=== PATIENT | female | born 1945 | race Caucasian/White ===

== ENCOUNTER → 2016-08-09 | Outpatient (CLI) | payer MEDICARE ==
[2015-05-11 14:00] VITALS: BP 115/52
[~2016-08-09] MED LIST: ASCO100T4 PO; ASPI81TA2 PO; ATOR40TA59 PO; CALC600T4 PO; CHOL2000 PO; DILT120T4 PO; DILT240C66 PO; DIPH25CA58 PO; FEXO1TAB64 PO; HYDR12.53 PO; HYDR25TA9 PO; IBUP200C PO; IBUP200T77 PO; IOHEXOL 240 MG/ML 50ML VIAL. PO ONE; IOHEXOL 300 MG/ML 100ML VIAL. IV ONE; LISI1TAB3 PO; LISI1TAB5 PO; OMEG300C PO; PANT40TA5 PO; POTA10TA5 PO; RANI150T2 PO; TRIA15CR TP; TRIA1CAP3 PO; ZINC50TA2 PO; [UNRECOGNIZED DRUG - OTHER]
--- NOTE | 2016-08-09 11:14 | KCIC ---
PROCEDURE CT abdomen and pelvis with contrast. HISTORY Left lower quadrant pain, history of diverticulitis TECHNIQUE After administration of intravenous and oral contrast, CT imaging was performed of the abdomen and pelvis, multiplanar reconstruction images submitted. Exposure: One or more of the following individualized dose reduction techniques were utilized for this exam: 1. Automated exposure control. 2. Adjustment of the mA and/or kV according to patient size. 3. Use of iterative reconstruction technique. Contrast: 100 cc Omnipaque 300 COMPARISON 09/15/2013 FINDINGS There is some coronary calcification, also mitral annular calcification. There is no new focal abnormality of the liver, spleen, pancreas. There is again small accessory spleen. Both kidneys enhance, no hydronephrosis. There is again mild left hydroureter, no ureteral calculus identified. There is a hypodense lesion of the mid left kidney 1.5 cm in size which is larger than previously, density measurements suggestive of a cyst 15 Hounsfield units. Tiny hypodense lesion of the inferior left kidney is otherwise difficult to accurately characterize 0.3 centimeters in size. Gallbladder is present without obvious intraluminal abnormality by CT. There is no adrenal nodularity. There is scattered atherosclerotic calcification of the abdominal aorta and iliac arteries. Normal appendix is visualized. There is retained stool throughout the colon. Bowel is not significantly dilated. There is no free air or free fluid. There is some fecalization of the distal small bowel. There is moderate to severe diverticulosis greatest of the descending and sigmoid colon. There is no significant inflammatory type change of the adjacent fat. There is no abscess. Accurate evaluation for colonic wall thickening is limited as not opacified with oral contrast during the exam. There is advanced degenerative disc disease at L4-5, to a lesser degree at L3-4 and L2-3. There is multilevel lumbar facet degenerative change. There is suspected mild to moderate narrowing of the right L4-5 and L3-4 neural foramina. There is likely mild variable lateral recess stenosis at L3-4 and L4-5. IMPRESSION 1. There is colonic diverticulosis greatest of the descending and sigmoid colon without convincing evidence of diverticulitis. There is retained stool throughout the colon, also fecalization of distal small bowel. 2. There is left renal cyst, larger than previously. 3. There is degenerative disc disease greatest at L4-5, likely at least mild lateral recess stenosis variably at L3-4 and L4-5, also narrowing of the right L3-4 and L4-5 neural foramina. Electronically signed by: Raad Harrington MD (Aug 09, 2016 11:12:45)
== END | disposition home or self-care (01) ==
LOC: KCIC CT 09:34
PROVIDERS: ATTEND Family Medicine
DX: R10.32 Left lower quadrant pain (principal); Z87.19 Personal history of other diseases of the digestive system; N28.1 Cyst of kidney, acquired
CPT/HCPCS: 74177; Q9966; Q9967

== ENCOUNTER → 2016-08-20 | Outpatient (CLI) | payer MEDICARE ==
[2015-05-11 14:00] VITALS: BP 115/52
[~2016-08-20] MED LIST changes: -IOHEXOL 240 MG/ML 50ML VIAL. PO ONE; -IOHEXOL 300 MG/ML 100ML VIAL. IV ONE
--- NOTE | 2016-08-20 17:04 | KCIC ---
Bilateral digital screening mammograms with CAD: HISTORY COMPARISON Comparison is made to previous studies dated 08/17/2015 and 08/02/2014. FINDINGS Breast density category B. The skin and nipples show no abnormalities. No abnormal lymph nodes are seen in the axilla. The breast parenchyma shows scattered fibroglandular density. There are no dominant masses, suspicious calcifications or architectural distortions. Benign appearing calcifications are present IMPRESSION No evidence of malignancy. Recommend routine annual mammographic screening. This study was interpreted with the benefit of Computerized Aided Detection (CAD). Mammography is not 100% sensitive in detecting breast cancer. Therefore, a self breast exam and a clinical breast exam are very important. A negative mammogram does not negate a clinically suspicious finding and should not result in a delay in biopsying a clinically suspicious abnormality. BI-RADS category 2. Benign. This patient's information has been entered into a reminder system for the patient to be notified with the results of this examination and a target date for her next mammograms. Electronically signed by: Brigida Whittington MD (Aug 20, 2016 17:02:35)
== END | disposition home or self-care (01) ==
LOC: KCIC MAMMO 13:12
PROVIDERS: ATTEND Family Medicine
DX: Z12.31 Encounter for screening mammogram for malignant neoplasm of breast (principal)
CPT/HCPCS: G0202; 77067

== ENCOUNTER → 2017-02-12 | Outpatient (CLI) | payer MEDICARE ==
[2015-05-11 14:00] VITALS: BP 115/52
[~2017-02-12] MED LIST changes: +ASPI-630 PO; -ASPI81TA2 PO
--- NOTE | 2017-02-12 14:47 | RAD ---
APPROVED REPORT Test Type: Pharmacological Stress Nurse/Tech: Leia Oconnell R.N. Test Indications: CAD, chest pain. Cardiac History: Angiogram 2 years ago, HTN Medications: SEE EMR Medical History: SEE EMR Resting ECG: SR, BBB Resting Heart Rate: 79 bpm Resting Blood Pressure: 145/68mmHg Pretest Chest Pain: None Nurse/Tech Notes S1S2, lungs diminished throughout, denied chest pain, SOA and dizziness. Consent: The procedure was explained to the patient in lay terms. Informed consent was witnessed. Victor Manuel eout was entered into [employer]. History and Stress Test performed by Leia Oconnell R.N. Stress Symptoms SOA. POST EXERCISE Reason for Termination: Reached target heart rate Target HR: 126 Max HR: 135 bpm Exercise duration: 4:00 min:sec, 2 Stage Max Blood Pressure: 188/76mmHg Blood Pressure response to exercise: Normal blood pressure response during stress. Heart Rate response to exercise: Normal Chest Pain: No. Arrhythmia: No. ST Change: No. INTERPRETATION Stress EKG Conclusion: No acute changes were noted. Baseline EKG with RBBB and LAFB. Imaging Protocol IMAGE PROTOCOL: Rest Tc-99m/stress Tc-99m 1 day Rest: Stress: Viability: Radiopharm.Tc99m [id number] Sestamibi Dose10.6mCi 32mCi Duration 15min. 10min. Img Date 02/12/2017 02/12/2017 Inj-Img [id number]. 60min. Rest Admin Site:IV - Right AntecubitalAdministrator:Chalino Bruno RT (R)(N) Stress Admin Site: IV - Right AntecubitalAdministrator: Jennifer Carney RT (R)(N) STRESS DATA End Diast. Vol.62.0mlAv. Heart Rate84.0bpm End Syst. Vol.9.0mlCO Index BSA4.5L/min Myocardial Pibi848.0gEject. Vgddyode21.0% Stress Rates Pk. Fill Rate5.73EDV/secLVtime Pk. Fill 198.71msec Pk. Empty Rate6.42ESV/secLVtime Pk. Oifbz385.91msec 07/24 Pk. Fill0.64EDV/sec Stress Scores Regional WT0.00Summed WT0.00 Regional WM0.00Summed WM0.00 The rest and stress images show normal perfusion, normal contraction and thickening. LV Perf. Quant 17 Seg. SSS1.00 17 Seg. SRS3.00 17 Seg. SDS0.00 Stress Defect Extent (% LAD)0.00Rest Defect Extent (% LAD)4.40Rev. Defect Extent (% LAD)0.00 Stress Defect Extent (% LCX) 0.00Rest Defect Extent (% LCX)18.80Rev. Defect Extent (% LCX)0.00 Stress Defect Extent (% RCA)0.00Rest Defect Extent (% RCA)0.00Rev. Defect Extent (% RCA)0.00 Stress Defect Extent (% VIDA)0.00Rest Defect Extent (% VIDA)9.10Rev. Defect Extent (% VIDA)0.00 Other Information Quality:Fair Risk Assessment: Low Risk Conclusion 1. No evidence of stress induced EKG changes. Average exercise capacity at 7.0 Mets. 2. Normal perfusion at stress/rest. 3. Motion artifact noted. 4. Normal EF at > 70% 5. Low risk study.
== END | disposition home or self-care (01) ==
LOC: NM 07:16
PROVIDERS: ATTEND Internal Medicine Cardiovascular Disease
DX: I25.10 Atherosclerotic heart disease of native coronary artery without angina pectoris (principal)
CPT/HCPCS: 78452; 93017; 96374; 96376; A9500

== ENCOUNTER → 2018-09-23 | Outpatient (CLI) | payer MEDICARE ==
[2015-05-11 14:00] VITALS: BP 115/52
[~2018-09-23] MED LIST changes: +HYDR-2145 PO; -HYDR12.53 PO; +HYDR12.575 PO; -HYDR25TA9 PO; +POTA10TA12 PO; -POTA10TA5 PO
--- NOTE | 2018-09-23 16:28 | KCIC ---
EXAM: Bilateral digital screening mammogram with tomosynthesis. HISTORY: 73-year-old female presents for screening mammography. TECHNIQUE: Full-field digital craniocaudal and mediolateral oblique 2D and 3D tomosynthesis images of both breasts are obtained for evaluation. Computer aided detection with [employer] software version 9.3 was applied. COMPARISON: 08/20/2016 BREAST PARENCHYMAL DENSITY: Level B - Scattered fibroglandular densities. FINDINGS: There is no new suspicious mass, microcalcification or region of architectural distortion. IMPRESSION: BI-RADS Category 2: Benign finding(s). RECOMMENDATION: Annual mammography is recommended. If your mammogram demonstrates that you have dense breast tissue, which could hide abnormalities, and if you have other risk factors for breast cancer that have been identified, you might benefit from supplemental screening tests that may be suggested by your ordering physician. Dense breast tissue, in and of itself, is a relatively common condition. This information is not provided to cause undue concern, but rather to raise your awareness and to promote discussion with your physician regarding the presence of other risk factors, in addition to dense breast tissue. A report of your mammography results will be sent to you and your physician. You should contact your physician if you have any questions or concerns regarding this report. Mammography is a sensitive method for finding small breast cancers, but it does not detect them all and is not a substitute for careful clinical examination. A negative mammogram does not negate a clinically suspicious finding and should not result in delay in biopsying a clinically suspicious abnormality. PQRS compliance statement - Patient information was entered into a reminder system with a target due date for the next mammogram. "Our facility is accredited by the [employer] Mammography Program." Electronically signed by: Jennifer Givens MD (09/23/2018 4:26 PM) [id number]
== END | disposition home or self-care (01) ==
LOC: KCIC MAMMO 13:51
PROVIDERS: ATTEND Family Medicine
DX: Z12.31 Encounter for screening mammogram for malignant neoplasm of breast (principal)
CPT/HCPCS: 77063; 77067

== ENCOUNTER → 2018-11-04 | Outpatient (CLI) | payer MEDICARE ==
[2015-05-11 14:00] VITALS: BP 115/52
[~2018-11-04] MED LIST changes: +GADOBUTROL 7.5 MMOL/7.5 ML VIAL IV ONE
--- NOTE | 2018-11-04 16:45 | KCIC ---
MRI Brain with and without contrast History: Progressive hearing loss right greater than left Technique: Multiplanar, multi sequential pre and postcontrast MR imaging was performed of the brain to include dedicated images of the internal auditory canals. Comparison: None Findings: There is no evidence of recent infarct or cytotoxic edema. The ventricles, sulci, and cisterns are within normal limits in size and configuration. There is no significant midline shift, intraaxial mass effect, or focal abnormal extra-axial fluid collection. There is mild T2 and FLAIR hyperintense signal of the right periatrial white matter. There is no nodular parenchymal or leptomeningeal enhancement. There is preservation of the major intracranial flow-voids at the skull base. The cerebellar tonsils are normal in location. There is no significant abnormality of the pineal gland or pituitary gland. There is [id number] bilateral ethmoid air cell and minimal frontal and maxillary sinus mucosal thickening. There is a small left maxillary sinus mucous retention cyst. The mastoid air cells are aerated. There is preserved marrow signal of the clivus. There is no nodular enhancement of the internal auditory canals or cerebellopontine angles. Vestibules, semicircular canals, cochlea appear normally formed bilaterally. There has been lens surgery bilaterally. Impression: 1. There is no nodular enhancement of the internal auditory canal or cerebellopontine angles. 2. Minimal T2 and FLAIR hyperintense signal such as of the right periatrial white matter is nonspecific, more commonly due to to chronic microvascular ischemic disease in a patient of this age. Electronically signed by: Jason Harrington MD (11/04/2018 4:42 PM) [id number]
== END | disposition home or self-care (01) ==
LOC: KCIC MRI 12:56
PROVIDERS: ATTEND Otolaryngology
DX: H90.5 Unspecified sensorineural hearing loss (principal); J34.89 Other specified disorders of nose and nasal sinuses; J34.1 Cyst and mucocele of nose and nasal sinus
CPT/HCPCS: 70553; 82565; A9585